=== PATIENT | female | born 1970 | race Two or more races ===

== ENCOUNTER 2016-03-30 14:14 | Emergency (ER) | payer OTHER ==
[~2016-03-30] VITALS: Ht 152.4 cm; Wt 68.0 kg
[2016-03-30 14:40] LABS: Basophils # (auto) 0.1 uL; Basophils % (auto) 1.6 % (0.0-2.0); Eosinophils # (auto) 0.4 uL; Eosinophils % (auto) 6.6 % (0.0-7.0); Hematocrit 42.9 % (36.0-46.0); Hemoglobin 13.6 g/dL (12.2-16.2); Lymphocytes # (auto) 2.1 uL; Lymphocytes % (auto) 35.4 % (10.0-50.0); Mean Corpuscular Hemoglobin 28.3 pg (28.0-32.0); Mean Corpuscular Hgb Conc. 31.8 g/dL (32.0-36.0); Mean Platelet Volume 8.4 fL (7.4-10.4); Monocytes # (auto) 0.4 uL; Monocytes % (auto) 6.1 % (0.0-12.0); Neutrophils # (auto) 2.9 uL; Neutrophils % (auto) 50.3 % (37.0-80.0); Platelet Count (auto) 300 10^3/uL (140-450); Red Cell Distribution Width 13.1 % (11.6-16.0); White Blood Cell 5.9 10^3/uL (4.4-10.8)
[2016-03-30 15:01] LABS: Albumin 3.4 g/dL (3.4-5.0); BUN/Creatinine Ratio 15.2; Calcium 7.7 mg/dL (8.5-10.1); Potassium 3.3 mmol/L (3.5-5.1)
[2016-03-30 15:04] LABS: Bilirubin, Total 0.1 mg/dL (0.2-1.0); Total Protein 6.8 g/dL (6.4-8.2)
[2016-03-30] MEDS ORDERED: methylPREDNISolone SOD SUCC 125 MG/2 ML VL IV ONE (15:15)
[2016-03-30 16:11] LABS: INR 1.03 (0.9-1.15); Partial Thromboplastin Time 26.1 sec (22.64-33.71); Prothrombin Time 10.6 sec (9.37-12.3)
[2016-03-30] MEDS ORDERED: POTASSIUM CHL 20 Meq TABLET PO ONE (16:45)
[2016-03-30] MEDS ORDERED: ALBUTEROL SULF 2.5 MG/0.5ML(0.5%) NEB SOLN NEB STA (17:07)
[2016-03-30] MEDS ORDERED: IPRATROPIUM BROM 0.5 MG/2.5ML INH SOL NEB ONE (17:15)
[2016-03-30 17:57] VITALS: BP 127/82
== END 2016-03-30 18:38 | disposition home or self-care (01) ==
LOC: ER 14:21
DX: J45.901 Unspecified asthma with (acute) exacerbation (principal); E87.6 Hypokalemia
CPT/HCPCS: 36415; 71010; 80053; 83735; 85025; 85610; 85730; 93005; 94640; 94761; 96374; 99285; J2930; J7030

== ENCOUNTER 2017-01-13 08:16 | Emergency (ER) | payer OTHER ==
[~2017-01-13] VITALS: Ht 154.9 cm; Wt 68.0 kg
[2017-01-13] MEDS ORDERED: IPRATROPIUM BROM 0.5 MG/2.5ML INH SOL ONE (08:34)
[2017-01-13] MEDS ORDERED: ALBUTEROL SULF 2.5 MG/0.5ML(0.5%) NEB SOLN ONE (08:34)
[2017-01-13] MEDS ORDERED: LEVOFLOXACIN 250 MG TAB PO ONE (08:45)
[2017-01-13] MEDS ORDERED: methylPREDNISolone SOD SUCC 125 MG/2 ML VL IV ONE (08:45)
[2017-01-13 09:09] LABS: Basophils # (auto) 0.1 uL; Basophils % (auto) 1.2 % (0.0-2.0); Eosinophils # (auto) 0.8 uL; Eosinophils % (auto) 11.2 % (0.0-7.0); Hematocrit 42.1 % (36.0-46.0); Hemoglobin 14.1 g/dL (12.2-16.2); Lymphocytes # (auto) 1.3 uL; Lymphocytes % (auto) 18.3 % (10.0-50.0); Mean Corpuscular Hemoglobin 29.7 pg (28.0-32.0); Mean Corpuscular Hgb Conc. 33.4 g/dL (32.0-36.0); Mean Platelet Volume 8.6 fL (6.9-10.8); Monocytes # (auto) 0.8 uL; Monocytes % (auto) 11.3 % (0.0-12.0); Neutrophils # (auto) 4.2 uL; Nucleated Red Blood Cells % 0.1 %; Platelet Count (auto) 301 10^3/uL (140-450); Red Cell Distribution Width 14.4 % (11.8-14.3); White Blood Cell 7.3 10^3/uL (4.4-10.8)
[2017-01-13] MEDS ORDERED: LEVOFLOXACIN 750MG 150 ML IV ONE (09:15)
[2017-01-13 09:32] LABS: Albumin 3.7 g/dL (3.4-5.0); Alkaline Phosphatase 83 U/L (45-117); Anion Gap 11 (5-15); Aspartate Aminotransferase 26 U/L (15-37); BUN/Creatinine Ratio 15.2; Bilirubin, Total 0.4 mg/dL (0.2-1.0); Blood Urea Nitrogen 12 mg/dL (7-18); Calcium 8.4 mg/dL (8.5-10.1); Carbon Dioxide 20 mmol/L (21-32); Chloride 107 mmol/L (98-107); GFR African American 100 mL/min; GFR Non-African American 83 mL/min; Glucose 116 mg/dL (74-106); Potassium 3.8 mmol/L (3.5-5.1); Sodium 138 mmol/L (136-145); Total Protein 7.9 g/dL (6.4-8.2)
[2017-01-13 10:34] VITALS: BP 122/75
[2017-01-13 10:48] LABS: B-Type Natriuretic Peptide 10.45 pg/mL (0-100); Temperature: 22.7 C (20.0-25.0)
== END 2017-01-13 11:50 | disposition home or self-care (01) ==
LOC: ER 08:16
DX: J20.9 Acute bronchitis, unspecified (principal); J45.909 Unspecified asthma, uncomplicated; Z98.51 Tubal ligation status
CPT/HCPCS: 36415; 71010; 80053; 81002; 83880; 84484; 85025; 94640; 96365; 96366; 96375; 99285; J1956; J2930